=== PATIENT | female | born 1940 | race Two or more races ===

== ENCOUNTER 2019-05-19 17:06 | Inpatient (IN) | payer MEDICAID ==
[~2019-05-19] VITALS: Ht 157.5 cm; Wt 75.3 kg
--- NOTE | 2019-05-19 17:10 | NUR ---
PT BIBRA FROM [facility] C/O GEN WEAKNESS AND MORE ALTERED THAN USUAL. ON ANTIBIOTIC TREATMENT FOR UTI. SWELLING ON BILATERAL ON UPPER AND LOWER EXREMITIES NOTED. PT ALERT AND AWAKE, SAUDI ARABIAN SPEAKING ONLY, RESPONDS TO VERBAL AND MECHANICAL STIMULI, RBEATHING EVEN AND UNLABORED ON ROOM AIR W/ NO ACUTE DISTRESS NOTED. PT CONNECTED TO THE SALES REPRESENTATIVE PUBLIC UTILITIES.
[2019-05-19] MEDS ORDERED: CEFU500T66 PO (17:50)
[2019-05-19] MEDS ORDERED: SENN-168 PO (17:50)
[2019-05-19] MEDS ORDERED: CRAN450C PO (17:50)
[2019-05-19] MEDS ORDERED: FOLI0.8T23 PO (17:50)
[2019-05-19] MEDS ORDERED: INSU100V7 SQ (17:50)
[2019-05-19] MEDS ORDERED: INSU100V SQ (17:50)
[2019-05-19] MEDS ORDERED: WARF5TAB77 PO (17:50)
[2019-05-19] MEDS ORDERED: CARV3.12 PO (17:50)
[2019-05-19] MEDS ORDERED: NITR100C6 PO (17:50)
--- NOTE | 2019-05-19 17:50 | NUR ---
BRIGIDA AT BEDSIDE FOR BLOOD DRAW
--- NOTE | 2019-05-19 18:04 | NUR ---
PICC LINE NURSE AT BEDSIDE.
[2019-05-19 18:09] LABS: BASOPHILS % (AUTO) 0.2 % (0.0-2.0); EOSINOPHILS % (AUTO) 0.7 % (0.0-6.0); HEMATOCRIT 40 % (33-45); HEMOGLOBIN 12.5 g/dL (11.5-14.8); LYMPHOCYTES # (AUTO) 1.5 /CMM (0.8-4.8); LYMPHOCYTES % (AUTO) 16.9 % (20.0-44.0); MEAN CORPUSCULAR HGB CONC 31 g/dl (31.0-36.0); MEAN CORPUSCULAR VOLUME 89 fL (82-100); MONOCYTES # (AUTO) 1.1 /CMM (0.1-1.30); MONOCYTES % (AUTO) 11.9 % (2.0-12.0); NEUTROPHILS # (AUTO) 6.2 /CMM (1.8-8.9); NEUTROPHILS % (AUTO) 70.3 % (43.0-81.0); PLATELET COUNT (AUTO) 234 /CMM (150-450); RED BLOOD CELL COUNT(AUTO) 4.51 MIL/uL (4.0-5.2); WHITE BLOOD COUNT (AUTO) 8.9 K/uL (4.3-11.0)
[2019-05-19 18:30] LABS: ALANINE AMINOTRANSFERASE 21 U/L (12-78); ALBUMIN 2.5 g/dL (3.4-5.0); ALKALINE PHOSPHATASE 113 U/L (46-116); ASPARTATE AMINOTRANSFERASE 26 U/L (15-37); BILIRUBIN,DIRECT 0.4 mg/dL (0.0-0.2); BILIRUBIN,TOTAL 0.9 mg/dL (0.2-1.0); CALCIUM, SERUM 9.2 mg/dL (8.5-10.1); CARBON DIOXIDE 20 mmol/L (21-32); CHLORIDE 104 mmol/L (98-107); CREATININE 2.2 mg/dL (0.6-1.3); GLUCOSE 199 mg/dL (74-106); POTASSIUM 5.2 mmol/L (3.5-5.1); SODIUM SERUM 137 mmol/L (136-145); TOTAL PROTEIN, SERUM 6.6 g/dL (6.4-8.2)
[2019-05-19 18:44] LABS: MAGNESIUM 2.6 mg/dL (1.8-2.4); PHOSPHORUS 5.6 mg/dL (2.5-4.9)
[2019-05-19 18:46] LABS: UREA NITROGEN, BLOOD 89 mg/dL (7-18)
[2019-05-19] MEDS ORDERED: PIPERACILLIN /TAZOBACTAM 2.25 G in IV D5W 50 ML IV ONE (19:30)
[2019-05-19] MEDS ORDERED: VANCOMYCIN 1 GM in IV D5W 250 ML IV ONE (19:30)
--- NOTE | 2019-05-19 19:30 | NUR ---
ALETHA LAGOS @ BS FOR PICC LINE INSERTION.
--- NOTE | 2019-05-19 19:38 | NUR ---
ELVIS: [phone] VONNIE: [phone]
[2019-05-19 20:12] LABS: APPEARANCE,URINE Cloudy (CLEAR); BILIRUBIN,URINE SMALL (NEGATIVE); BLOOD, URINE Large Ery/uL (NEGATIVE); COLOR,URINE Yellow (YELLOW); KETONES,URINE Negative (NEGATIVE); LEUKOCYTE ESTERASE ,URINE Small (NEGATIVE); NITRITE, URINE Negative (NEGATIVE); PH,URINE 5.5 (5.0-8.0); PROTEIN,URINE 30 mg/dl (NEGATIVE); UGLUCOSE Negative (NEGATIVE); UROBILINOGEN,URINE 0.2 EU/dL (0.2)
[2019-05-19 20:24] LABS: BACTERIA,URINE Many /HPF (None Seen); MUCUS,URINE Few /LPF (None Seen); RBC,URINE 21-50 /HPF (0-2); SQUAMOUS EPITHELIAL CELL,UR Few /HPF (None Seen); WBC,URINE 81-100 /HPF (0-3)
[2019-05-19] MEDS ORDERED: FUROSEMIDE 40 MG/4 ML VIAL IV ONE (20:30)
--- NOTE | 2019-05-19 20:38 | NUR ---
REPORT GIVEN TO SHELLEY FOR SHERRELL. BED 325-2
--- NOTE | 2019-05-19 20:56 | NUR ---
INFORMED DR. DOMINGUEZ OF RECTAL TEMP AND UPDATED BP. PER DR. DOMINGUEZ, TELE ADMIT STILL OKAY
[2019-05-19 21:11] VITALS: BP 110/84
--- NOTE | 2019-05-19 21:11 | NUR ---
OPERATING MANAGER ADMISSION NOTES RECEIVED PATIENT FROM ER VIA RNEY, SAFELY TRANSFERRED TO BED, CURRENTLY HAS BEAR HUGGER BLANKET ON FOR LOW TEMPERATURE , RESPIRATIONS EVEN AND UNLABORED WITH EQUAL RISE AND FALL OF CHEST, HUA INTACT AND DRAINING NOTED WITH CLOUDY UBALDO COLORED URINE. PLACED ON LIFE ENRICHMENT MANAGER NOTED WITH A.FIB 115. MIDLINE TO RIGHT UPPER ARM SL INTACT AND PATENT NO REDNESS, NO INFILTRATION PRESENT, NO BELONGINGS PRESENT, TOP AND BOTTOM DENTURE ONLY , PT IS WEARING DENTURES, ASPIRATION PRECAUTIONS RENDERED, SAFETY PRECAUTIONS RENDERED, LOW BED AND LOCKED, BED ALARM IN PLACE, BODY ASSESSMENT DONE PICTURES TAKEN AND PLACED IN CHART. PATIENT CLEANSED AND KEPT DRY, WILL FOLLOW MD ORDERS, WILL CONTINUE TO MONITOR AND ASSESS FOR ANY CHANGES AND NOTIFY MD.
--- NOTE | 2019-05-19 21:18 | NUR ---
Dr. lowe still wants patient at Tele, Dr. Lowe notified about patient hypothermia.
[2019-05-19 22:30] VITALS: BP 110/84
[2019-05-19] MEDS ORDERED: Z GUARD REMEDY 2 OZ OINT TP PRN (23:00)
[2019-05-19] MEDS ORDERED: ONDANSETRON HCL/PF 4 MG/2 ML VIAL IVP PRN (23:00)
[2019-05-19] MEDS ORDERED: MAGNESIUM HYDROXIDE 30 ML UDC PO PRN (23:00)
[2019-05-19] MEDS ORDERED: ZOLPIDEM TARTRATE 5 MG TABLET PO PRN (23:00)
[2019-05-19] MEDS ORDERED: MAG HYDROX/AL HYDROX/SIMETH 30 ML UDC PO PRN (23:00)
--- NOTE | 2019-05-19 23:04 | NUR ---
ALETHA URBINA NOTES FOR SEPSIS REASSESSMENT PER DR. DOMINGUEZ , NO FLUIDS AT THIS TIME,NO LASIX CONTINUE ANTIBIOTICS ORDERED. Addendum: 05/20/19 at 0008 by SHELLEY WAGNER RN UNABLE TO DO REASSESSMENT OF FLUIDS ASSESSMENT, NO FLUIDS WERE GIVEN OR ORDERED AT THIS TIME PER .
--- NOTE | 2019-05-19 23:16 | NUR ---
ALETHA URBINA NOTES PER DR.ANDONIAN LEANDRO BULLOCK AT THIS TIME. Addendum: 05/20/19 at 0200 by SHELLEY WAGNER RN Amended: Links added.
[2019-05-19 23:19] VITALS: BP 108/56
[2019-05-20] VITALS (7 sets, daily range): BP systolic 89–108; BP diastolic 46–81
[2019-05-20 00:07] LABS: ALBUMIN 2.3 g/dL (3.4-5.0); BILIRUBIN,DIRECT 0.5 mg/dL (0.0-0.2); BILIRUBIN,TOTAL 0.9 mg/dL (0.2-1.0)
[2019-05-20] MEDS: HYDROCODONE/APAP 5/325MG 1 EACH TABLET PO PRN (02:22)
--- NOTE | 2019-05-20 02:22 | NUR ---
TIE PRESSER NOTES NOTED WITH FACIAL GRIMACING, MOANS AND CHANGE IN VS, STATES"PAIN"HOWEVER UNABLE TO SCALE, NODS HEAD YES TO PAIN,ESTRELLA MCDANIELS SCALE USED 6/10 NOTED PAIN MEDICATION OFFERED PATIENT NOD HEAD YES. NORCO PRN ORDERED GIVEN PATIENT WAS ABLE TO TOLERATE CRUSHED MEDICATION WITH APPLE SAUCE AND TOLERATED SMALL SIPS OF WATER NO COUGHING NOTED. WILL CONTINUE TO MONITOR FOR EFFECTIVENESS. VS WNL NO CHANGE SINCE ADMISSION TO FLOOR
[2019-05-20] MEDS ORDERED: MEROPENEM 1 G VIAL IV ONE (03:55)
[2019-05-20] MEDS ORDERED: MEROPENEM 1 G in IV NS 0.9% 100 ML IV SCH (04:00)
--- NOTE | 2019-05-20 06:07 | NUR ---
LABORER GENERAL NOTES SPOKE TO REGARDING B/P TRENDING 95/56 AND 99/59. NEW ORDER RECEIVED AND READ BACK FOR IVF NORMAL SALINE 500ML BAG ONLY TO RUN AT 75ML /HR FLUID CHALLENGE THAN REASSESS.
[2019-05-20] MEDS ORDERED: IV NS 0.9% 500 ML IV ONE (06:30)
[2019-05-20 06:34] LABS: BASOPHILS % (AUTO) 0.1 % (0.0-2.0); EOSINOPHILS % (AUTO) 0.4 % (0.0-6.0); HEMATOCRIT 35 % (33-45); HEMOGLOBIN 11.2 g/dL (11.5-14.8); LYMPHOCYTES # (AUTO) 1.2 /CMM (0.8-4.8); LYMPHOCYTES % (AUTO) 13.8 % (20.0-44.0); MEAN CORPUSCULAR HGB CONC 32 g/dl (31.0-36.0); MEAN CORPUSCULAR VOLUME 88 fL (82-100); MONOCYTES # (AUTO) 0.9 /CMM (0.1-1.30); MONOCYTES % (AUTO) 10.5 % (2.0-12.0); NEUTROPHILS # (AUTO) 6.6 /CMM (1.8-8.9); NEUTROPHILS % (AUTO) 75.2 % (43.0-81.0); PLATELET COUNT (AUTO) 231 /CMM (150-450); RED BLOOD CELL COUNT(AUTO) 4.03 MIL/uL (4.0-5.2); WHITE BLOOD COUNT (AUTO) 8.8 K/uL (4.3-11.0)
--- NOTE | 2019-05-20 06:50 | NUR ---
BEVERAGE INSPECTION MACHINE TENDER CLOSING NOTES PATIENT IN BED AWAKE RESPONDS TO NAME AND TOUCH, NOTED OPENS EYES AND MOANS, SPEECH NOT CLEAR. NO CHANGE IN MENTAL STATUS SINCE ADMITTED TO UNIT. NOTED MORE AWAKE AND RESPONSIVE AT THIS TIME SINCE ADMISSION, CURRENTLY HAS BEAR HUGGER BLANKET ON FOR LOW TEMPERATURE , CURRENT TEMPERATURE IS 97.7 RESPIRATIONS EVEN AND UNLABORED WITH EQUAL RISE AND FALL OF CHEST, HUA INTACT AND DRAINING NOTED WITH CLOUDY UBALDO COLORED URINE 350CC OUTPUT. ON BIAS CUTTER NOTED WITH A.FIB 115-125 MD AWARE WITH NO FURTHER ORDERS AT THIS TIME. MIDLINE TO RIGHT UPPER ARM INTACT AND PATENT NO REDNESS, NO INFILTRATION PRESENT, MADE MD AWARE OF BLOOD PRESSURE TRENDING DOWN WITH NEW ORDER FOR NS OBTAINED AND CURRENTLY RUNNING ORDERED, WITH CLOSE MONITORING. NO BELONGINGS PRESENT, TOP AND BOTTOM DENTURE REMAINS IN MOUTH , ASPIRATION PRECAUTIONS RENDERED, SAFETY PRECAUTIONS RENDERED, LOW BED AND LOCKED, BED ALARM IN PLACE,PATIENT KEPT DRY CLEAN , WILL CONTINUE TO MONITOR AND ASSESS FOR ANY CHANGES AND ENDORSE TO NEXT SHIFT, BLE ELEVATED AND BUE ELEVATED, ALL DUE MED AND ABX GIVEN ORDERED WITH NO ADVERSE REACTIONS PRESENT. NORCO WHEN GIVEN WAS EFFECTIVE.
[2019-05-20 07:22] LABS: CALCIUM, SERUM 8.6 mg/dL (8.5-10.1); CARBON DIOXIDE 19 mmol/L (21-32); CHLORIDE 103 mmol/L (98-107); CREATININE 2.4 mg/dL (0.6-1.3); GLUCOSE 209 mg/dL (74-106); MAGNESIUM 2.3 mg/dL (1.8-2.4); PHOSPHORUS 5.7 mg/dL (2.5-4.9); POTASSIUM 5.1 mmol/L (3.5-5.1); SODIUM SERUM 136 mmol/L (136-145)
[2019-05-20 07:24] LABS: UREA NITROGEN, BLOOD 94 mg/dL (7-18)
[2019-05-20 07:41] LABS: CHOLESTEROL 131 mg/dL (<200); HDL CHOLESTEROL 41 mg/dL (40-60); LDL 82 mg/dL (0-99); TRIGLYCERIDES 70 mg/dL (30-150)
[2019-05-20] MEDS ORDERED: FEE PK DOSING 1 MIN EA MC ONE (08:55)
[2019-05-20] MEDS: VIT B CMPLX 3/FA/VIT C/BIOTIN 1 TAB TABLET PO SCH (09:00)
[2019-05-20] MEDS ORDERED: Medication Not On Formulary EA (Cranberry Fruit Concentrate (Cranberry) 450 MG) PO SCH (09:00)
[2019-05-20] MEDS: CARVEDILOL 3.125 MG TABLET PO SCH ×2 (09:00→16:10)
[2019-05-20] MEDS: MEROPENEM 500 MG in IV NS 0.9% 100 ML IV SCH ×2 (09:09→21:01)
--- NOTE | 2019-05-20 09:49 | NUR ---
REPORTED PT BP TO CHARLY Avina DNP HIGHEST BP IS 78/40 , SATURATION ON ROOM AIR 97%
--- NOTE | 2019-05-20 10:01 | NUR ---
RECTAL TEMPERATURE CHECKED AND IT 98.9
--- NOTE | 2019-05-20 14:59 | NUR ---
RN CLAIRE OPENING NOTES RECEIVED REPORT FROM ALBINO POMPA. PATIENT IN BED AWAKE, OPENS EYES AND MOANS IN RESPONSE TO NAME AND TOUCH. PT ON ROOM AIR, SATURATING WELL, RESPIRATIONS EVEN AND UNLABORED, NO SIGNS OF RESPIRATORY DISTRESS NOTED. HUA CATHETER INTACT, DRAINING CLOUDY UBALDO COLORED URINE. ON [place]IP SUPERVISOR NOTED WITH A.FIB HR 115. BP 92/52, TEMP 97.2, RR 20, 02 SAT 97%. RIGHT UPPER ARM MIDLINE INTACT, PATENT. BED IN LOW POSITION, LOCKED, CALL LIGHT WITHIN REACH. BILATERAL UPPER EXTREMITY +2 PITTING EDEMA NOTED. RIGHT LOWER EXTREMITY NON PITTING EDEMA NOTED. LEFT LOWER EXTREMITY +3 PITTING EDEMA NOTED. LUNG SOUNDS ARE CLEAR. WILL CONTINUE TO MONITOR CLOSELY.
[2019-05-20] MEDS: NYSTATIN TOP POWDER 15 GM BOTTLE TP SCH ×2 (15:37→16:10)
[2019-05-20] MEDS: WARFARIN SODIUM 5 MG TABLET PO SCH (17:36)
--- NOTE | 2019-05-20 18:46 | NUR ---
RN CLAIRE CLOSING NOTES PATIENT IN BED AWAKE, OPENS EYES AND MOANS IN RESPONSE TO NAME AND TOUCH. PT ON ROOM AIR, SATURATING WELL, RESPIRATIONS EVEN AND UNLABORED, NO SIGNS OF RESPIRATORY DISTRESS NOTED. HUA CATHETER INTACT, DRAINING CLOUDY UBALDO COLORED URINE. ON EDITOR PUBLICATIONS NOTED WITH A.FIB HR 131. RIGHT UPPER ARM MIDLINE INTACT, PATENT. BED IN LOW POSITION, LOCKED, CALL LIGHT WITHIN REACH. PROVIDED SAFETY AND COMFORT THROUGHOUT SHIFT, ALL NEEDS MET. WILL ENDORSE TO NOC SHIFT NURSE.
--- NOTE | 2019-05-20 19:25 | NUR ---
CLAIRE/RN NOTES PATIENT IN BED, AWAKE, A/O X1, MOANS IN RESPONSE TO NAME AND TOUCH. IN NO ACUTE DISTRESS, BREATHING EVEN AND UNLABORED ON ROOM AIR. NO SOB NOTED, NO S/S OF PAIN NOTED, HOB ELEVATED, HUA IN PLACE, PATENT DRAINING WELL WITH CLOUDY UBALDO COLOR URINE, WITH MINIMAL OUTPUT SINCE LAST SHIFT ONLY 15CC. MID-LINE IN PLACE, PATENT, SAFETY MAINTAINED, BED AT THE LOWEST LOCKED POSITION, PATIENT ON TELE MONITORING WITH A-FIB RATE 120, CALL LIGHT WITHIN REACH. KEPT CLEAN AND DRY. WILL CONTINUE TO MONITOR PER PLAN OF CARE.
[2019-05-20] MEDS: VANCOMYCIN 0.75 GM in IV D5W 250 ML IV SCH (21:01)
[2019-05-20] MEDS ORDERED: INSULIN GLARGINE, 100 UNIT/ML CARTRIDGE SQ SCH (22:00)
--- NOTE | 2019-05-20 23:00 | NUR ---
Patient blood sugar 240, lantus and coverage with sliding scale as ordered not given due to patient NPO status.
[2019-05-20] MEDS: SENNOSIDES 8.6 MG TABLET PO SCH (23:09)
[2019-05-20] MEDS: BLOOD SUGAR DIAGNOSTIC 1 EACH STRIP IN SCH (23:10)
[2019-05-21] VITALS: BP 96/61
[2019-05-21 04:00] VITALS: BP 93/65
--- NOTE | 2019-05-21 06:13 | NUR ---
BLOOD SUGAR 254, NO COVERAGE GIVEN, PATIENT NPO
[2019-05-21] MEDS: BLOOD SUGAR DIAGNOSTIC 1 EACH STRIP IN SCH ×3 (06:16→17:57)
[2019-05-21] MEDS: ACETAMINOPHEN 325 MG TABLET PO PRN (06:24)
--- NOTE | 2019-05-21 06:48 | NUR ---
CLAIRE/RN NOTES PATIENT IN BED, AWAKE, A/O X1, MOANS IN RESPONSE TO NAME AND TOUCH. IN NO ACUTE DISTRESS, BREATHING EVEN AND UNLABORED ON ROOM AIR. NO SOB NOTED, HOB ELEVATED, HUA IN PLACE, PATENT DRAINING WITH CLOUDY UBALDO COLOR URINE MID-LINE IN PLACE, PATENT, SAFETY MAINTAINED, BED AT THE LOWEST LOCKED POSITION, PATIENT ON TELE MONITORING WITH A-FIB RATE, DUE MEDS GIVEN, TREATMENTS RENDERED ORDERED, TOLERATED WELL. CALL LIGHT WITHIN REACH. KEPT CLEAN AND DRY. WILL ENDORSE TO AM BRIDGETTE NURSE FOR SHERRELL.
[2019-05-21 07:04] LABS: CALCIUM, SERUM 8.6 mg/dL (8.5-10.1); CARBON DIOXIDE 17 mmol/L (21-32); CHLORIDE 102 mmol/L (98-107); CREATININE 3.2 mg/dL (0.6-1.3); GLUCOSE 275 mg/dL (74-106); POTASSIUM 5.2 mmol/L (3.5-5.1); SODIUM SERUM 136 mmol/L (136-145)
[2019-05-21 07:08] LABS: UREA NITROGEN, BLOOD 102 mg/dL (7-18)
--- NOTE | 2019-05-21 07:30 | NUR ---
CLAIRE/RN NOTES PATIENT IN BED, ASLEEP, RESPONSE TO NAME AND TOUCH. ON ROOM AIR, NO SOB, NO ACUTE DISTRESS, RESPIRATION UNLABORED, AFIB HR 125 ON TELE MONITOR, MD AWARE. NO SIGNS OF PAIN, WILD MIDLINE FLUSHES WELL, SITE CLEAR. HUA IN PLACE, PATENT DRAINING WITH CLOUDY UBALDO COLOR URINE, SAFETY MAINTAINED, BED AT THE LOWEST LOCKED POSITION, SEE NURSING FLOWSHEET FOR SKIN ISSUES. FOR SWALLOW EVAL. NPO AT THE MOMENT. CALL LIGHT WITHIN REACH. KEPT CLEAN AND DRY. WILL CONT TO MONITOR.
[2019-05-21 08:00] VITALS: BP 92/67
[2019-05-21] MEDS: CARVEDILOL 3.125 MG TABLET PO SCH ×2 (09:00→17:13)
[2019-05-21] MEDS ORDERED: IV NS 0.9% 1,000 ML IV PRN (09:18)
[2019-05-21] MEDS: VIT B CMPLX 3/FA/VIT C/BIOTIN 1 TAB TABLET PO SCH (09:25)
[2019-05-21] MEDS: MEROPENEM 500 MG in IV NS 0.9% 100 ML IV SCH ×2 (09:27→20:55)
[2019-05-21] MEDS: HYDROGEL DRESSING 90 GM TUBE TP SCH (09:27)
[2019-05-21] MEDS: NYSTATIN TOP POWDER 15 GM BOTTLE TP SCH ×2 (09:29→17:15)
--- NOTE | 2019-05-21 09:30 | NUR ---
RN NOTES DUE MEDS GIVEN
--- NOTE | 2019-05-21 10:14 | NUR ---
WOUND CARE CONSULT WOUND CARE RECEIVED CONSULT FOR SACRAL SCATTERED WOUNDS AND BLE/FEET WOUNDS. WOUND CARE WILL DEFER CONSULT AND ALL TREATMENT PLANS TO PLASTIC SURGICAL TEAM WELL DPM DR SINGH WHO ARE ALL CURRENTLY FOLLOWING THIS PATIENT. PATIENT WITH NAIMA AT 11, ALL PRESSURE ULCER PREVENTION MEASURES ARE NOTED TO BE IN PLACE AT THIS TIME. WILL SEE PRN.
--- NOTE | 2019-05-21 11:10 | NUR ---
TD RN NOTES PT SEEN BY SKristineT., PT PASSED SWALLOW EVAL. CAN HAVE PUREED DIET.
[2019-05-21 12:00] VITALS: BP 110/54
--- NOTE | 2019-05-21 15:21 | NUR ---
RN NOTES REPORT GIVEN TO NEAL POMPA FOR SHERRELL
[2019-05-21] MEDS ORDERED: HYDROMORPHONE 1 MG/1 ML DISP.SYRIN IV ONE (15:50)
[2019-05-21 16:00] VITALS: BP 115/65
[2019-05-21] MEDS ORDERED: HYDROMORPHONE 1 MG/1 ML DISP.SYRIN IV PRN (16:00)
--- NOTE | 2019-05-21 16:00 | NUR ---
RN NOTE: ERROR IN ORDER INPUT FOR BLOOD CULTURE X2 AND DILAUDID. ORDERS WERE PLACED IN WRONG PATIENTS CHART. ERROR ORDERS DISCONTINUED.
[2019-05-21] MEDS: WARFARIN SODIUM 5 MG TABLET PO SCH (17:16)
--- NOTE | 2019-05-21 17:30 | NUR ---
RN NOTES DR. ESPINAL AT THE UNIT. INFORMED MD THAT PATIENT WITH ACCU CHECK BUT NO INSULIN COVERAGE ORDER. PER THE LATTER, WILL CHECK ON THE PATIENT.
[2019-05-21] MEDS ORDERED: FUROSEMIDE 20 MG/2 ML VIAL IV SCH (18:30)
[2019-05-21] MEDS: METOPROLOL TARTRATE 25 MG TABLET PO SCH (18:46)
--- NOTE | 2019-05-21 19:00 | NUR ---
RN NOTES CALLED [facility], TO INFORMED ABOUT PATIENT'S HR ON THE 130S, SPOKE TO DR DE LUNA PER THE LATTER. CALL THE HOSPITALIST FIRST AND IF THEY ARE NEEDED THE HOSPITALIST WILL CALL THEM. ALETHA PANCHAL (CHARGE NURSE) INFORMED. ALSO ENDORSED TO THE PATIENT Addendum: 05/21/19 at 1941 by JESSIKA SY RN ERROR IN CHARTING SHOULD " ALSO ENDORSED TO INCOMING NURSE"
--- NOTE | 2019-05-21 19:30 | NUR ---
RN NOTES ENDORSED FOR CONTINUITY OF CARE. NOT ON ANY RESPIRATORY DISTRESS. HR ON THE 130s. PATIENT CALM IN BED.SAFETY MEASURES IN PLACE.CALL LIGHT WITHIN REACH
[2019-05-21 20:00] VITALS: BP 100/65
[2019-05-21] MEDS: HYDROCODONE/APAP 5/325MG 1 EACH TABLET PO PRN ×2 (20:54→23:17)
[2019-05-21] MEDS: VANCOMYCIN 0.75 GM in IV D5W 250 ML IV SCH (20:55)
[2019-05-21] MEDS: SENNOSIDES 8.6 MG TABLET PO SCH (21:17)
[2019-05-21] MEDS: INSULIN GLARGINE, 100 UNIT/ML CARTRIDGE SQ SCH (22:00)
[2019-05-21] MEDS: *INSULIN REGULAR(HUMULIN R)HUM 100 UNIT/ML VIAL SQ PRN (23:15)
[2019-05-21] MEDS: BLOOD SUGAR DIAGNOSTIC 1 EACH STRIP VI SCH (23:17)
[2019-05-21] MEDS ORDERED: DEXTROSE 50%-WATER 50 ML DISP.SYRIN IV PRN (23:30)
[2019-05-22] VITALS (7 sets, daily range): BP systolic 91–124; BP diastolic 45–67
[2019-05-22] MEDS: HYDROCODONE/APAP 5/325MG 1 EACH TABLET PO PRN (02:55)
--- NOTE | 2019-05-22 05:41 | NUR ---
RN NOTES PATIENT IN BED SLEEPING WITH NO DISTRESS NOTED. BREATHING EVEN AND UNLABORED. ROOM AIR WELL TOLERATED. FC PATENT AND INTACT, DRAINING CLEAR YELLOW WITH NO FOUL ODOR URINE. NOTED WITH FACIAL GRIMMACE AND MOANING. PATIENT IS ALERT AND NON VERBAL. GAVE NORCO X 2 WITH HELP. KEPT CLEAN AND DRY. WILL ENDORSE TO NEXT SHIFT FOR CONTINUITY OF CARE.
[2019-05-22 07:03] LABS: BASOPHILS % (AUTO) 0.1 % (0.0-2.0); EOSINOPHILS % (AUTO) 0.5 % (0.0-6.0); HEMATOCRIT 35 % (33-45); LYMPHOCYTES % (AUTO) 13.4 % (20.0-44.0); MEAN CORPUSCULAR HGB CONC 32 g/dl (31.0-36.0); MEAN CORPUSCULAR VOLUME 88 fL (82-100); MONOCYTES # (AUTO) 0.9 /CMM (0.1-1.30); MONOCYTES % (AUTO) 11.3 % (2.0-12.0); NEUTROPHILS # (AUTO) 5.8 /CMM (1.8-8.9); NEUTROPHILS % (AUTO) 74.7 % (43.0-81.0); PLATELET COUNT (AUTO) 203 /CMM (150-450); RED BLOOD CELL COUNT(AUTO) 3.92 MIL/uL (4.0-5.2); WHITE BLOOD COUNT (AUTO) 7.8 K/uL (4.3-11.0)
--- NOTE | 2019-05-22 07:30 | NUR ---
RN NOTE RECEIVED PATIENT IN BED. REPOSITIONED PT. HOB ELEVATED. NO SIGNS OF PAIN OR DISCOMFORT AT THIS TIME. BREATHING UNLABORED AT ROOM AIR. HUA CATHETER PATENT AND IN PLACE. PT WITH MID LINE ON RUE PATENT AND IN PLACE. IVF RUNNING TO KEEP VEIN OPEN. WILL MONITOR.
[2019-05-22 07:47] LABS: CALCIUM, SERUM 8.5 mg/dL (8.5-10.1); CARBON DIOXIDE 17 mmol/L (21-32); CHLORIDE 102 mmol/L (98-107); CREATININE 3.6 mg/dL (0.6-1.3); POTASSIUM 5.5 mmol/L (3.5-5.1); SODIUM SERUM 133 mmol/L (136-145)
[2019-05-22 07:56] LABS: GLUCOSE 354 mg/dL (74-106); UREA NITROGEN, BLOOD 110 mg/dL (7-18)
[2019-05-22] MEDS: BLOOD SUGAR DIAGNOSTIC 1 EACH STRIP VI SCH ×4 (08:02→21:32)
[2019-05-22] MEDS: *INSULIN REGULAR(HUMULIN R)HUM 100 UNIT/ML VIAL SQ PRN (08:03)
--- NOTE | 2019-05-22 08:45 | NUR ---
RN NOTE\ Recieved critical lab values BUN 110, Creatinine 3.6 potassium 5.5 and POC glucose 354. Paged Dr. Sinclair with order to resume NS 0.9% IV @75ml/hr and administer Kayaxelate 60g po x 1. Order noted and carried out.
[2019-05-22] MEDS: INSULIN GLARGINE, 100 UNIT/ML CARTRIDGE SQ SCH ×2 (08:51→22:04)
[2019-05-22] MEDS: LACTOBACILLUS RHAMNOSUS GG 1 EACH CAP.SPRINK PO SCH ×2 (08:53→17:32)
[2019-05-22] MEDS: METOPROLOL TARTRATE 25 MG TABLET PO SCH ×2 (08:53→21:00)
[2019-05-22] MEDS: VIT B CMPLX 3/FA/VIT C/BIOTIN 1 TAB TABLET PO SCH (08:53)
[2019-05-22] MEDS ORDERED: SODIUM POLYSTYRENE SULFONATE 15 G/60 ML BOTTLE PO ONE (09:00)
[2019-05-22] MEDS: MEROPENEM 500 MG in IV NS 0.9% 100 ML IV SCH ×2 (09:16→21:33)
[2019-05-22] MEDS: NYSTATIN TOP POWDER 15 GM BOTTLE TP SCH ×2 (09:17→17:38)
[2019-05-22] MEDS: HYDROGEL DRESSING 90 GM TUBE TP SCH (10:27)
[2019-05-22] MEDS: MUPIROCIN OINT 2% 22 GM TUBE SCH ×2 (12:02→21:34)
[2019-05-22] MEDS: INSULIN REGULAR, HUMAN 100 UNIT/ML 3 ML VIAL SQ PRN ×3 (12:08→22:02)
--- NOTE | 2019-05-22 12:19 | NUR ---
RN NOTE DR. ESPINAL MADE AWARE OF CURRENT PT/INR RESULT WITH ORDER TO HOLD COUMADIN FOR TODAY AND REDRAW PT/INR DAILY STARTING TOMORROW.ORDER NOTED AND CARRIED OUT.
[2019-05-22] MEDS ORDERED: BUMETANIDE INJ 2 MG in IV NS 0.9% 32 ML IV ONE (14:00)
[2019-05-22] MEDS: ACETAMINOPHEN 325 MG TABLET PO PRN (14:46)
[2019-05-22 15:00] LABS: CREATININE, URINE 212.5 MG/DL (30.0-125.0)
--- NOTE | 2019-05-22 15:09 | NUR ---
RN NOTE NOTED WITH NEW ORDER FOR SEVELAMER 800MG 1 TAB PO. NOTED THAT PATIENT CANNOT SWALLOW PILLS WHOLE. PAGED DR. DREW.
--- NOTE | 2019-05-22 15:23 | NUR ---
RN NOTE Dr. Martinez agreed to change Sevelamer 800mg 1 tab po to Sevelamer 0.8g powder po. Order noted and carried out.
[2019-05-22] MEDS: SEVELAMER CARBONATE 0.8 GM POWD.PACK PO SCH (17:33)
[2019-05-22] MEDS ORDERED: SEVELAMER CARBONATE 800 MG TABLET PO SCH (18:00)
--- NOTE | 2019-05-22 19:08 | NUR ---
CLAIRE RN OPENING NOTES RECEIVED PATIENT IN BED, A/OX1. FACIAL GRIMACE AND MOANING NOTED. ON TELE MONITOR AFIB WITH HR 100'S. ON MECHANICAL VENT TRACH SETTINGS: ON ROOM AIR, TOLERATING WELL, BREATHING EVEN AND UNLABORED, NO SOB NOTED. IV SITE WILD MIDLINE FLUSHING AND PATENT, SITE C/D/I INTACT. HUA IN PLACE, PATENT DRAINING. GENERALIZED EDEMA NOTED, EXTREMITIES ELEVATED. SAFETY MEASURES MAINTAINED; BED LOCKED AND IN LOWEST POSITION, SIDE RAILS UP X2, CALL LIGHT WITHIN REACH, HOB ELEVATED. WILL CONT TO MONITOR PT CLOSELY.
--- NOTE | 2019-05-22 20:42 | NUR ---
CLAIRE RN NOTES JUSTINO FROM [facility] CALLED AND ASKED FOR UPDATE REGARDING PT. BRIEF UPDATE GIVEN BY RN.
[2019-05-22] MEDS: SENNOSIDES 8.6 MG TABLET PO SCH (21:24)
[2019-05-23] VITALS: BP 101/57
[2019-05-23 04:00] VITALS: BP 90/53
--- NOTE | 2019-05-23 07:18 | NUR ---
CLAIRE RN CLOSING NOTES PATIENT SLEEPING IN BED, BUT EASY TO AROUSE. NO ACUTE CHANGES THROUGHOUT SHIFT. ON ROOM AIR, TOLERATING WELL, NO SOB OR CARDIAC DISTRESS NOTED. REPOSITIONED Q2H. PT KEPT CLEAN AND DRY. WOUND TX RENDERED ORDERED. SAFETY MEASURES MAINTAINED. ALL MD ORDERS ATTENDED. ENDORSED TO AM RN FOR SHERRELL.
[2019-05-23 07:20] LABS: BASOPHILS % (AUTO) 0.5 % (0.0-2.0); EOSINOPHILS % (AUTO) 2.7 % (0.0-6.0); HEMATOCRIT 28 % (33-45); LYMPHOCYTES # (AUTO) 1.4 /CMM (0.8-4.8); LYMPHOCYTES % (AUTO) 21.5 % (20.0-44.0); MEAN CORPUSCULAR HGB CONC 32 g/dl (31.0-36.0); MEAN CORPUSCULAR VOLUME 89 fL (82-100); MONOCYTES # (AUTO) 0.8 /CMM (0.1-1.30); MONOCYTES % (AUTO) 12.8 % (2.0-12.0); NEUTROPHILS % (AUTO) 62.5 % (43.0-81.0); PLATELET COUNT (AUTO) 167 /CMM (150-450); RED BLOOD CELL COUNT(AUTO) 3.19 MIL/uL (4.0-5.2); WHITE BLOOD COUNT (AUTO) 6.4 K/uL (4.3-11.0)
[2019-05-23 07:29] LABS: CALCIUM, SERUM 8.3 mg/dL (8.5-10.1); CARBON DIOXIDE 22 mmol/L (21-32); CHLORIDE 105 mmol/L (98-107); CREATININE 3.4 mg/dL (0.6-1.3); POTASSIUM 3.9 mmol/L (3.5-5.1); SODIUM SERUM 140 mmol/L (136-145)
[2019-05-23] MEDS: BLOOD SUGAR DIAGNOSTIC 1 EACH STRIP VI SCH ×4 (07:41→21:38)
[2019-05-23 07:44] LABS: GLUCOSE 43 mg/dL (74-106); UREA NITROGEN, BLOOD 113 mg/dL (7-18)
[2019-05-23 08:00] VITALS: BP 112/57
--- NOTE | 2019-05-23 08:00 | NUR ---
CLAIRE/RN AM SHIFT INITIAL NOTES RECEIVED PT ASLEEP IN BED, EASILY AROUSED, PT A/O X 1, ON ROOM AIR SATURATING @ 95%, LUNG SOUNDS CLEAR. RESPIRATIONS EVEN AND UNLABORED, LUNG SOUNDS CLEAR. ON TELE WITH CONTROLLED A-FIB, HR 98. BLOOD GLUCOSE CHECKED, 39, PT GIVEN D50 IVP PER SLIDING SCALE WILL RE-CHECK BLOOD GLUCOSE IN ONE HOUR. TEMP 95.9 VIA AXILLARY, WARMING BLANKETS GIVEN. MIDLINE INTACT ON TKO, HUA CATHETER INTACT WITH YELLOW URINE OUTPUT. PT IS COMFORTABLE, SCHEDULED AM MEDS TO BE GIVEN. CL WITHIN REACHED, SAFETY MAINTAINED AND ISOLATION OBSERVED. ON GOING MONITORING.
[2019-05-23] MEDS: SEVELAMER CARBONATE 0.8 GM POWD.PACK PO SCH ×3 (08:57→17:30)
[2019-05-23] MEDS: METOPROLOL TARTRATE 25 MG TABLET PO SCH (08:58)
[2019-05-23] MEDS: LACTOBACILLUS RHAMNOSUS GG 1 EACH CAP.SPRINK PO SCH ×2 (08:58→17:30)
[2019-05-23] MEDS: MUPIROCIN OINT 2% 22 GM TUBE SCH ×2 (08:58→21:39)
[2019-05-23] MEDS: INSULIN GLARGINE, 100 UNIT/ML CARTRIDGE SQ SCH (08:58)
[2019-05-23] MEDS: VIT B CMPLX 3/FA/VIT C/BIOTIN 1 TAB TABLET PO SCH (08:58)
--- NOTE | 2019-05-23 08:58 | NUR ---
CLAIRE/RN BLOOD GLUCOSE RE-CHECKED BLOOD GLUCOSE RE-CHECKED, RESULT 91, SCHEDULED LANTUS 10 UNITS HELD D/T BLOOD GLUCOSE STILL ON THE LOW SIDE, PRIMARY MD NOTIFIED.
[2019-05-23] MEDS: NYSTATIN TOP POWDER 15 GM BOTTLE TP SCH ×2 (08:59→17:30)
[2019-05-23] MEDS: HYDROGEL DRESSING 90 GM TUBE TP SCH (08:59)
[2019-05-23] MEDS: METOPROLOL SUCCINATE 25 MG TAB.SR.24H PO SCH (10:00)
[2019-05-23] MEDS: MEROPENEM 500 MG in IV NS 0.9% 100 ML IV SCH ×2 (10:34→21:39)
[2019-05-23 12:00] VITALS: BP 120/74
[2019-05-23] MEDS ORDERED: BUMETANIDE INJ 2 MG in IV NS 0.9% 32 ML IV ONE (14:00)
[2019-05-23 16:00] VITALS: BP_SYST 126; BP_DIAS 53; BP_DIAS 63
--- NOTE | 2019-05-23 19:30 | NUR ---
TELE1/RN AM SHIFT END NOTES ALL NEEDS MET. NO ACUTE CHANGE OF CONDITION NOTED DURING THE SHIFT. PT ENDORSED TO PM NURSE TO CONTINUE CARE. CL WITHIN REACHED, SAFETY MAINTAINED AND ISOLATION OBSERVED.
[2019-05-23 20:00] VITALS: BP 128/53
--- NOTE | 2019-05-23 21:00 | NUR ---
MANAGER LEARNING NOTE: RECEIVED PT ON BED AWAKE, CROATIAN SPEAKING ONLY. RN STEPHON AT BEDSIDE FOR TRANSLATION, PT CONFUSED WITH NO APPARENT DISTRESS NOTED. NO FACIAL GRIMACING OR ANY SIGNS OF PAIN NOTED. ON ROOM AIR, NO SOB NOTED. AFIB ON TELE MONITOR HR 86BPM. RIGHT UPPER ARM MIDLINE INTACT AND PATENT, FLUSHING WELL. HUA CATH INTACT AND DRAINING WELL. KEPT CLEAN, DRY AND COMFORTABLE. SAFETY AND FALL PRECAUTIONS OBSERVED AND MAINTAINED. WILL CONTINUE TO MONITOR PT.
[2019-05-23] MEDS: SENNOSIDES 8.6 MG TABLET PO SCH (21:38)
[2019-05-23] MEDS ORDERED: INSULIN GLARGINE, 100 UNIT/ML CARTRIDGE SQ SCH (22:00)
[2019-05-24] VITALS: BP 115/73
[2019-05-24 04:00] VITALS: BP 104/71
[2019-05-24 06:50] LABS: ALANINE AMINOTRANSFERASE 17 U/L (12-78); ALBUMIN 2.1 g/dL (3.4-5.0); ALKALINE PHOSPHATASE 85 U/L (46-116); ASPARTATE AMINOTRANSFERASE 23 U/L (15-37); BILIRUBIN,TOTAL 0.8 mg/dL (0.2-1.0); CALCIUM, SERUM 8.1 mg/dL (8.5-10.1); CARBON DIOXIDE 20 mmol/L (21-32); CHLORIDE 103 mmol/L (98-107); CREATININE 3.2 mg/dL (0.6-1.3); GLUCOSE 153 mg/dL (74-106); POTASSIUM 3.4 mmol/L (3.5-5.1); SODIUM SERUM 139 mmol/L (136-145); TOTAL PROTEIN, SERUM 5.6 g/dL (6.4-8.2)
[2019-05-24 06:57] LABS: UREA NITROGEN, BLOOD 111 mg/dL (7-18)
--- NOTE | 2019-05-24 07:25 | NUR ---
PROCUREMENT CONSULTANT NOTE: NO CHANGES NOTED THROUGHOUT THE SHIFT. NO FACIAL GRIMACING OR ANY SIGNS OF PAIN NOTED. ON ROOM AIR, NO SOB NOTED. AFIB ON TELE MONITOR HR 115 BPM. HUA CATH INTACT DRAINED 400 ML OF URINE OUTPUT. KEPT CLEAN, DRY AND COMFORTABLE. SAFETY AND FALL PRECAUTIONS OBSERVED AND MAINTAINED. WILL ENDORSE TO DAY SHIFT RN FOR CONTINUITY OF CARE
[2019-05-24 08:00] VITALS: BP 95/71
--- NOTE | 2019-05-24 08:00 | NUR ---
TELE/RN AM SHIFT INITIAL NOTES RECEIVED PT ASLEEP IN BED, EASILY AROUSED, PT A/O X 1, ON ROOM AIR SATURATING @ 99%, LUNG SOUNDS CLEAR. RESPIRATIONS EVEN AND UNLABORED, LUNG SOUNDS CLEAR. ON TELE WITH FIB, HR 104. BLOOD GLUCOSE CHECKED, 150, PT TO BE 2 UNITS OF REGULAR INSULIN PER PRESCRIBED SLIDING SCALE. MIDLINE INTACT ON TKO, HUA CATHETER INTACT WITH YELLOW URINE OUTPUT. PT IS COMFORTABLE, SCHEDULED AM MEDS TO BE GIVEN. CL WITHIN REACHED, SAFETY MAINTAINED AND ISOLATION OBSERVED. ON GOING MONITORING.
[2019-05-24] MEDS: BLOOD SUGAR DIAGNOSTIC 1 EACH STRIP VI SCH ×3 (08:03→17:23)
[2019-05-24] MEDS: LACTOBACILLUS RHAMNOSUS GG 1 EACH CAP.SPRINK PO SCH ×2 (08:06→17:24)
[2019-05-24] MEDS: VIT B CMPLX 3/FA/VIT C/BIOTIN 1 TAB TABLET PO SCH (08:06)
[2019-05-24] MEDS: SEVELAMER CARBONATE 0.8 GM POWD.PACK PO SCH ×3 (08:06→17:24)
[2019-05-24] MEDS: MUPIROCIN OINT 2% 22 GM TUBE SCH (08:06)
[2019-05-24] MEDS: HYDROGEL DRESSING 90 GM TUBE TP SCH (08:07)
[2019-05-24] MEDS: NYSTATIN TOP POWDER 15 GM BOTTLE TP SCH ×2 (08:07→17:24)
[2019-05-24] MEDS: INSULIN REGULAR, HUMAN 100 UNIT/ML 3 ML VIAL SQ PRN ×3 (08:12→17:27)
[2019-05-24] MEDS ORDERED: INSU100V7 SQ (08:20)
[2019-05-24] MEDS ORDERED: METO25TA4 PO (08:20)
[2019-05-24] MEDS ORDERED: MERO1VIA3 IV (08:20)
[2019-05-24] MEDS ORDERED: POTASSIUM CHLORIDE 20 MEQ TAB.PRT.SR PO ONE (08:30)
[2019-05-24] MEDS: MEROPENEM 500 MG in IV NS 0.9% 100 ML IV SCH (09:41)
[2019-05-24] MEDS: METOPROLOL SUCCINATE 25 MG TAB.SR.24H PO SCH (09:47)
[2019-05-24 12:00] VITALS: BP 98/68
[2019-05-24 16:00] VITALS: BP_SYST 130; BP_SYST 140; BP_DIAS 76; BP_DIAS 80
--- NOTE | 2019-05-24 19:30 | NUR ---
TELE1/RN AM SHIFT END NOTES NO ACUTE CHANGE OF CONDITION NOTED DURING THE SHIFT, ALL NEEDS MET. PT TO BE DISCHARGE AWAITING FOR TRANSPORT SERVICE, PT ENDORSED TO PM NURSE TO CONTINUE CARE, UNTIL DISCHARGE. CL WITHIN REACHED, SAFETY MAINTAINED AND ISOLATION OBSERVED.
--- NOTE | 2019-05-24 20:00 | NUR ---
RN NOTES PATIENT IS A/A/OX2 IN BED, V/S B/P106/66, HR 110 SPO2 98% ON RA, TEMP 97.7F, NO COMPLAINT OF PAIN OR DISCOMFORT AT THIS TIME.AT 1999 PATIENT IS BEING TRANSPORTED TO [facility]. ALL BELONGINGS AND UPPER AND LOWER DENTURES SENT WITH THE PATIENT. PATIENT IS LEAVING HOSPITAL WITH RIGHT UPPER ARM MIDLINE IV IN PLACE AND HUA CATHETER WELL. PUBLIC RELATIONS COUNSELOR AND WRIST BAND REMOVED.
[2019-05-24] MEDS ORDERED: INSULIN GLARGINE, 100 UNIT/ML CARTRIDGE SQ SCH (22:00)
== END 2019-05-24 22:11 | DRG 720 ==
LOC: ER 17:08 → TELE 20:50 → TELE1 05-20 14:45 → TELE-TD 05-20 15:17 → TELE1 05-23 09:51
PROVIDERS: ADMIT Family Medicine; ATTEND Internal Medicine
PROC: 05HB33Z Insertion of Infusion Device into Right Basilic Vein, Percutaneous Approach (ICD-10-PCS; principal; 2019-05-19)
DX: A41.9 Sepsis, unspecified organism (principal); N17.0 Acute kidney failure with tubular necrosis; L89.150 Pressure ulcer of sacral region, unstageable; J15.9 Unspecified bacterial pneumonia; E44.0 Moderate protein-calorie malnutrition; G92 Toxic encephalopathy; E11.22 Type 2 diabetes mellitus with diabetic chronic kidney disease; E83.39 Other disorders of phosphorus metabolism; I42.9 Cardiomyopathy, unspecified; E11.51 Type 2 diabetes mellitus with diabetic peripheral angiopathy without gangrene; E11.621 Type 2 diabetes mellitus with foot ulcer; N39.0 Urinary tract infection, site not specified; E11.65 Type 2 diabetes mellitus with hyperglycemia; I13.0 Hypertensive heart and chronic kidney disease with heart failure and stage 1 through stage 4 chronic kidney disease, or unspecified chronic kidney disease; E87.5 Hyperkalemia; E78.5 Hyperlipidemia, unspecified; I25.10 Atherosclerotic heart disease of native coronary artery without angina pectoris; N18.9 Chronic kidney disease, unspecified; E83.41 Hypermagnesemia; Z68.30 Body mass index [BMI] 30.0-30.9, adult; R65.20 Severe sepsis without septic shock; L98.8 Other specified disorders of the skin and subcutaneous tissue; L30.4 Erythema intertrigo; B96.1 Klebsiella pneumoniae [K. pneumoniae] as the cause of diseases classified elsewhere; B96.20 Unspecified Escherichia coli [E. coli] as the cause of diseases classified elsewhere; I48.20 Chronic atrial fibrillation, unspecified; Z95.0 Presence of cardiac pacemaker; I50.22 Chronic systolic (congestive) heart failure; L97.429 Non-pressure chronic ulcer of left heel and midfoot with unspecified severity; L97.519 Non-pressure chronic ulcer of other part of right foot with unspecified severity; E11.622 Type 2 diabetes mellitus with other skin ulcer; L97.919 Non-pressure chronic ulcer of unspecified part of right lower leg with unspecified severity; Z79.01 Long term (current) use of anticoagulants
CPT/HCPCS: 36415; 70450-TC; 71045-TC; 80048-TC; 80053-TC; 80061-TC; 80076-TC; 80202-TC; 81000-TC; 82570-TC; 82962-TC; 83605-TC; 83735-TC; 83880; 84100-TC; 84484-TC; 85025-TC; 85610-TC; 85730-TC; 87040-TC; 87081-TC; 87086-TC; 87186-TC; 92611-TC; 93307-TC; A4216; A6248; A6403; G0378; J1815; J1940; J2185; J2543; J3370; J3490; J7030; J7040; J7050; J7060